=== PATIENT | male | born 1940 | race Caucasian/White ===

== ENCOUNTER 2017-10-16 08:49 | Outpatient (CLI) | payer MEDICARE ==
--- NOTE | 2017-10-16 12:40 | Ultrasound Report ---
ABDOMINAL AORTIC ANEURYSM SCREEN: 10/16/2017 HISTORY: Pulsation sensation in the abdomen. COMPARISON: CT 02/12/2009. TECHNIQUE: Real-time scanning by the hot wire glass tube cutter with saved static images reviewed. FINDINGS: Aortic measurements in cm as follows: Proximal sagittal 1.6. Mid transverse 1.8 x 1.8. Distal transverse 1.7 x 1.5. Right common iliac artery transverse 1.1 x 0.9 cm; left common iliac artery transverse 1.0 x 0.9 cm. Peak systolic aortic velocities: Proximal 60 cm per second. Mid 43 cm per second. Distal 50 cm per second. Proximal right common iliac artery peak systolic velocity 45 cm/sec, left 57 cm per second. IMPRESSION: NEGATIVE FOR ABDOMINAL AORTIC ANEURYSM. TD: 10/16/2017 12:39 [email or web address]
== END 2017-10-16 08:50 | disposition home or self-care (01) ==
LOC: DI 08:49
PROVIDERS: ATTEND Registered Nurse
DX: Z13.6 Encounter for screening for cardiovascular disorders (principal); I10 Essential (primary) hypertension
CPT/HCPCS: 76775